=== PATIENT | male | born 1960 | race African-American/Black ===

== ENCOUNTER 2022-06-18 14:23 | Inpatient (IN) | payer BC, OTHER ==
[~2022-06-18] VITALS: Ht 188 cm; Wt 103.6 kg
[2022-06-18] MEDS ORDERED: HYDROCODONE/ACETAMINOPHEN 10/325MG TABLET PO ONE (16:15)
[2022-06-18] MEDS ORDERED: KETOROLAC 60MG/2ML VIAL IM ONE (16:15)
[2022-06-18] MEDS ORDERED: HYDROCODONE/ACETAMINOPHEN 10/325MG TABLET PO NR (18:15)
[2022-06-18] MEDS ORDERED: PROPOFOL 200MG/20ML VIAL IV ONE ×2 (18:30→20:15)
[2022-06-18] MEDS ORDERED: PROPOFOL 200MG/20ML VIAL IV NR (20:45)
[2022-06-18] MEDS ORDERED: ZOLPIDEM TARTRATE 5MG TABLET PO ONE (23:30)
[2022-06-19 00:42] LABS: BASOPHILS % 0.4 % (0.0-2.0); EOSINOPHILS % 0.2 % (0.0-5.0); HEMATOCRIT. 28.6 % (42.0-52.0); HEMOGLOBIN. 9.9 g/dL (14.0-18.0); LYMPHOCYTES % 13.5 % (20.0-50.0); MEAN CORPUSCULAR HEMOGLOBIN 28.9 pg (28.0-32.0); MEAN CORPUSCULAR VOLUME 83.4 fL (80.0-94.0); MEAN PLATELET VOLUME 8.5 fl (7.4-10.4); MONOCYTES % 8.9 % (2.0-8.0); PLATELET 169 x1000/uL (130-400); RED BLOOD CELL COUNT 3.42 mill/uL (4.7-6.1); RED CELL DISTRIBUTION WIDTH 14.2 % (11.6-14.6)
[2022-06-19 00:48] LABS: CHLORIDE 105 mEq/L (98-107)
[2022-06-19] MEDS ORDERED: CLONIDINE 0.1MG TABLET PO PRN ×2 (01:30→18:00)
[2022-06-19] MEDS ORDERED: DIPHENHYDRAMINE 50MG/ML VIAL IV PRN (01:30)
[2022-06-19] MEDS ORDERED: ONDANSETRON HCL 4MG/2ML INJ IV PRN (01:30)
[2022-06-19] MEDS ORDERED: ACETAMINOPHEN 325MG TABLET PO PRN ×2 (01:30)
[2022-06-19] MEDS ORDERED: NALOXONE HCL 0.4MG/ML VIAL IV PRN (02:00)
[2022-06-19] MEDS: DEXT 5%/0.45% NACL 1000ML 1,000 ML IV SCH ×3 (02:18→21:30)
[2022-06-19] MEDS: MORPHINE SULFATE 4 MG/ML CPJ (NOT FOR IM USE) IV PRN ×4 (02:19→20:57)
[2022-06-19] MEDS: PANTOPRAZOLE SODIUM 40 MG/VIAL IV SCH (09:13)
[2022-06-19] MEDS ORDERED: PROPOFOL 200MG/20ML VIAL IV ONE ×2 (13:41)
[2022-06-19] MEDS ORDERED: FENTANYL CITRATE/PF 50MCG/ML 2ML VIAL ONE (13:47)
[2022-06-19] MEDS ORDERED: MIDAZOLAM HCL 2 MG/2 ML VIAL ONE (13:47)
[2022-06-19] MEDS ORDERED: SUCCINYLCHOLINE CHLORIDE 200MG/10ML IV ONE ×2 (13:49→14:13)
[2022-06-19] MEDS ORDERED: DEXAMETHASONE 4MG/ML 1ML VIAL ONE (14:13)
[2022-06-19] MEDS ORDERED: ONDANSETRON HCL 4MG/2ML INJ ONE (14:13)
[2022-06-19] MEDS ORDERED: CEFAZOLIN SODIUM 1000MG/VIAL ONE (14:13)
[2022-06-19] MEDS ORDERED: OXYCODONE HCL/ACETAMINOPHEN 5/325MG TABLET PO PRN (18:00)
[2022-06-19 18:15] VITALS: BP 160/90
[2022-06-19 19:00] VITALS: BP 151/70
[2022-06-19 20:00] VITALS: BP 157/87
[2022-06-20] VITALS: BP 152/80
[2022-06-20 08:00] VITALS: BP 141/73
[2022-06-20] MEDS: CELECOXIB 200MG CAPSULE PO SCH ×2 (09:00→17:19)
[2022-06-20] MEDS: HYDROCHLOROTHIAZIDE 25MG TABLET PO SCH (09:01)
[2022-06-20] MEDS: TAMSULOSIN HCL 0.4MG SR CAPSULE PO SCH (09:02)
[2022-06-20] MEDS: PANTOPRAZOLE SODIUM 40 MG/VIAL IV SCH (09:02)
[2022-06-20 12:00] VITALS: BP 132/82
[2022-06-20] MEDS ORDERED: MAGNESIUM HYDROXIDE 400MG/5ML 30ML UDC PO PRN (14:45)
[2022-06-20] MEDS ORDERED: LACTULOSE 20G/30ML UDC PO PRN (14:45)
[2022-06-20] MEDS ORDERED: BISACODYL 10MG SUPP PR PRN (14:45)
[2022-06-20] MEDS ORDERED: SENNOSIDES 8.6MG TABLET PO PRN (14:45)
[2022-06-20 16:00] VITALS: BP 136/69
[2022-06-20] MEDS: DOCUSATE SODIUM 100MG CAPSULE PO SCH (17:16)
[2022-06-20 20:00] VITALS: BP 118/67
[2022-06-20] MEDS ORDERED: NALOXONE HCL 0.4MG/ML VIAL IV PRN (20:15)
[2022-06-21] VITALS: BP 106/60
[2022-06-21 04:00] VITALS: BP 111/62
[2022-06-21 08:00] VITALS: BP 113/67
[2022-06-21] MEDS: PANTOPRAZOLE SODIUM 40 MG/VIAL IV SCH (09:24)
[2022-06-21] MEDS: CELECOXIB 200MG CAPSULE PO SCH ×2 (09:25→16:47)
[2022-06-21] MEDS: TAMSULOSIN HCL 0.4MG SR CAPSULE PO SCH (09:25)
[2022-06-21] MEDS: HYDROCHLOROTHIAZIDE 25MG TABLET PO SCH (09:25)
[2022-06-21] MEDS: DOCUSATE SODIUM 100MG CAPSULE PO SCH ×2 (09:25→16:47)
[2022-06-21 12:00] VITALS: BP 117/69
[2022-06-21 16:00] VITALS: BP 111/67
[2022-06-21 17:46] VITALS: BP 125/75
[2022-06-22] MEDS ORDERED: FAMOTIDINE 20MG TABLET PO SCH (09:00)
== END 2022-06-21 18:32 | disposition short-term general hospital (02) | DRG 561 ==
LOC: ER 14:23 → EDBEDREQ 06-19 01:32 → EDBEDREQTM 06-19 01:32 → ER 06-19 13:45 → 6EST 06-19 20:23
PROVIDERS: ADMIT Internal Medicine; ATTEND Internal Medicine
PROC: 0SW9XJZ Revision of Synthetic Substitute in Right Hip Joint, External Approach (ICD-10-PCS; principal; 2022-06-19)
DX: T84.020A Dislocation of internal right hip prosthesis, initial encounter (principal); N40.0 Benign prostatic hyperplasia without lower urinary tract symptoms; D64.9 Anemia, unspecified; I10 Essential (primary) hypertension; Z20.822 Contact with and (suspected) exposure to COVID-19; M19.90 Unspecified osteoarthritis, unspecified site; W19.XXXA Unspecified fall, initial encounter; Y93.89 Activity, other specified; Y92.89 Other specified places as the place of occurrence of the external cause; Y99.8 Other external cause status; Y79.2 Prosthetic and other implants, materials and accessory orthopedic devices associated with adverse incidents
CPT/HCPCS: 27250; 36415; 72170; 73501; 73502; 76000; 80048; 85025; 87426; 93005; 96372; 97116; 97161; 99152; 99285; C9113; C9803; J0330; J0690; J1100; J1200; J1885; J2250; J2270; J2405; J2704; J3010